=== PATIENT | male | born 1985 | race Caucasian/White ===

== ENCOUNTER 2022-04-23 21:12 | Emergency (ER) | payer SELFPAY ==
[2022-04-23 22:25] LABS: HEMOGLOBIN 14.2 gm/dl (14.0-17.5); RED BLOOD COUNT 4.41 M/UL (4.20-5.50); WHITE BLOOD COUNT 7.9 K/UL (4.5-11.0)
[2022-04-23 23:53] LABS: BUN/CREATININE RATIO 11 (0-10)
== END 2022-04-23 23:52 | disposition left against medical advice (07) ==
LOC: ER1 21:12
PROVIDERS: Physician Assistant
DX: M54.50 Low back pain, unspecified (principal); F17.290 Nicotine dependence, other tobacco product, uncomplicated; Z87.442 Personal history of urinary calculi
CPT/HCPCS: 80048; 81001; 85025; 99283